=== PATIENT | female | born 2000 | race Caucasian/White ===

== ENCOUNTER 2019-03-01 17:15 | Emergency (ER) | payer OTHER ==
--- NOTE | 2019-03-01 17:25 | PDOC ---
Rapid Medical Evaluation Time Seen by Provider: 03/01/19 17:23 Medical Evaluation: 03/01/19 17:23 I have performed a brief in-person evaluation of this patient. The patient presents with a chief complaint of:+ home preg test 3 days ago, ~9- 10 weeks by dates, here w/ lower abd cramping x several weeks. No vag bleed, dysuria, n/v Pertinent physical exam findings:stable and well brenda I have ordered the following:labs/US The patient will proceed to the ED for further evaluation. Discharge Disposition - Diagnosis Abdominal cramping - Referrals - Patient Instructions - Post Discharge Activity
[2019-03-01 17:27] VITALS: BP 121/75; PULSE 76; TEMP 98.8; BMI 22.6
--- NOTE | 2019-03-01 18:35 | PDOC ---
History of Present Illness - General Chief Complaint: Pain Stated Complaint: BAD CRAMPS Time Seen by Provider: 03/01/19 17:23 History Source: Patient Exam Limitations: No Limitations - History of Present Illness Initial Comments: 03/01/19 18:31 18 yo F with no medical history presents to the emergency department with abdominal cramps with associative nausea but no vomiting for 4 days. Per the patient, she took a test at home 3x a few days ago to confirm the . Her LMP is unknown, but she believes it to be in mid December and they are irregular. She denies vaginal bleeding but states she had white vaginal discharge. Her abdominal pain is located in the RLQ and LLQ (worse on right) that is cramping in nature and 10/10. Denies diarrhea and hematochezia. Allergies: PCN Social: Denies tobacco, alcohol, and substance abuse. Past History - Past Medical History Allergies/Adverse Reactions: Allergies Allergy/AdvReac Type Severity Reaction Status Date / Time Penicillins Allergy Verified 03/01/19 17:23 Home Medications: Ambulatory Orders NK [No Known Home Medication] 03/01/19 CVA: No COPD: No CHF: No DVT: No - Immunization History Immunization Up to Date: Yes - Suicide/Smoking/Psychosocial Hx Smoking History: Never smoked Hx Alcohol Use: No Drug/Substance Use Hx: No Review of Systems - Review of Systems Able to Perform ROS?: Yes Is the patient limited Indian proficient: No Constitutional: No: Chills, Diaphoresis, Fever, Weakness HEENTM: No: Recent change in vision, Ear Pain, Nose Pain, Throat Pain, Mouth Pain Respiratory: No: Cough, Shortness of Breath Cardiac (ROS): No: Chest Pain, Palpitations, Syncope ABD/GI: Yes: Nausea, Poor Appetite, Poor Fluid Intake. No: Constipated, Diarrhea, Rectal Bleeding, Vomiting, Tarry Stools : No: Burning, Dysuria, Discharge Musculoskeletal: No: Back Pain, Joint Pain, Neck Pain Integumentary: No: Bruising, Erythema, Rash Neurological: No: Headache, Numbness, Tingling, Tremors Psychiatric: No: Change in Appetite Endocrine: No: Unexplained Weight Gain Hematologic/Lymphatic: No: Anemia *Physical Exam - Vital Signs Last Vital Signs Temp Pulse Resp BP Pulse Ox 98.8 F 76 17 121/75 100 03/01/19 17:24 03/01/19 17:24 03/01/19 17:24 03/01/19 17:24 03/01/19 17:24 - Physical Exam General Appearance: Yes: Nourished, Appropriately Dressed. No: Apparent Distress HEENT: positive: EOMI, ELIESER, Normal Voice, Symmetrical, TMs Normal, Pharynx Normal, Hearing Grossly Normal. negative: Pale Conjunctivae, Scleral Icterus (R ), Scleral Icterus (L), Muffled/Hoarse voice, Pharyngeal Erythema, Tonsillar Exudate, Tonsillar Erythema, Rhinorrhea, Sinus Tenderness, Excessive drooling Neck: positive: Trachea midline, Supple. negative: Tender, Lymphadenopathy (R) , Lymphadenopathy (L) Respiratory/Chest: positive: Lungs Clear, Normal Breath Sounds. negative: Chest Tender, Respiratory Distress, Accessory Muscle Use, Rales, Rhonchi, Stridor, Wheezing Cardiovascular: positive: Regular Rhythm, Regular Rate, S1, S2. negative: Systolic Murmur Female Pelvic Exam: positive: normal external exam, cervical os closed, normal adnexa, other. negative: CMT, adnexal tenderness, vaginal bleeding (white discharge in vaginal vault) Gastrointestinal/Abdominal: positive: Normal Bowel Sounds, Tender (RLQ tenderness. ), Flat, Soft. negative: Distended, Rebound ED Treatment Course - LABORATORY CBC & Chemistry Diagram: 03/01/19 19:14 03/01/19 19:00 Medical Decision Making - Medical Decision Making 18 yo F with no medical history presents to the emergency department with abdominal cramps with associative nausea but no vomiting for 4 days Initial vitals; Initial Vital Signs Temp Pulse Resp BP Pulse Ox 98.8 F 76 17 121/75 100 03/01/19 17:24 03/01/19 17:24 03/01/19 17:24 03/01/19 17:24 03/01/19 17:24 Work up: ddx: r/o ectopic. assess for iup. in addition, concerns exist for possible appendicitis vs ovarian cyst. bedside POCUS shows no IUP, no free fluid, and unable to visualize appendix. but no wall edema found in the small bowel. Laboratory Tests 03/01/19 03/01/19 03/01/19 19:00 19:00 19:14 WBC 9.4 RBC 4.13 Hgb 12.7 Hct 37.9 MCV 91.6 MCH 30.8 MCHC 33.6 RDW 13.6 Plt Count 270 MPV 7.9 Absolute Neuts (auto) 6.6 Neutrophils % 70.6 Lymphocytes % 23.3 Monocytes % 5.6 Eosinophils % 0.4 Basophils % 0.1 Nucleated RBC % 0 Sodium 140 Potassium 3.7 Chloride 105 Carbon Dioxide 27 Anion Gap 9 BUN 15 Creatinine 0.5 L Creat Clearance w eGFR 158.94 Random Glucose 92 Calcium 9.4 Total Bilirubin 0.4 AST 8 L ALT 15 Alkaline Phosphatase 55 Total Protein 7.3 Albumin 4.2 Beta HCG, Quant 2200.9 Urine Color Urine Appearance Urine pH Ur Specific [place] Urine Protein Urine Glucose (UA) Urine Ketones Urine Blood Urine Nitrite Urine Bilirubin Urine Urobilinogen Ur Leukocyte Esterase Urine HCG, Qual Blood Type Antibody Screen 03/01/19 03/01/19 03/01/19 19:14 19:17 19:20 WBC RBC Hgb Hct MCV MCH MCHC RDW Plt Count MPV Absolute Neuts (auto) Neutrophils % Lymphocytes % Monocytes % Eosinophils % Basophils % Nucleated RBC % Sodium Potassium Chloride Carbon Dioxide Anion Gap BUN Creatinine Creat Clearance w eGFR Random Glucose Calcium Total Bilirubin AST ALT Alkaline Phosphatase Total Protein Albumin Beta HCG, Quant Urine Color Yellow Urine Appearance Clear Urine pH 5.5 Ur Specific [place] 1.040 H Urine Protein Negative Urine Glucose (UA) Negative Urine Ketones 3+ H Urine Blood Negative Urine Nitrite Negative Urine Bilirubin Negative Urine Urobilinogen 1.0 Ur Leukocyte Esterase Negative Urine HCG, Qual Positive Blood Type O POSITIVE Antibody Screen Negative UA shows 3+ ketones. patient's TVUS shows gestational sac that could be a true gestational sac at 5 weeks 3 days. No pole or yolk sac identified. the patient's bhcg is consistent with the gestational age range. patient has no elevation of WBC and resolution of abdominal pain with tylenol, reglan, and IVF. patient was given strict return precautions and given a report of the ultrasound. she was given a referral to OBGYN for follow up care and management. Dispo: Discharge. *DC/Admit/Observation/Transfer Diagnosis at time of Disposition: Abdominal cramping - Discharge Dispostion Disposition: HOME Decision to Admit order: No - Referrals Referrals: ON STAFF,NOT [Primary Care Provider] - Rosa M Toussaint MD [Staff Physician] - [facility] [place] [facility] [place] [Provider Group] - Patient Instructions Printed Discharge Instructions: Eating for Appropriate Weight Gain During , Common Discomforts and Bodily Changes During , Exercise and : A Healthy Combination, Herbs and Supplements to Avoid During and (Alternat, Diet Additional Instructions: you were seen for the evaluation of your abdominal cramping. your labs were within normal limits except your urine showing that you were dehydrated. your ultrasound showed what appears to be a gestational sac with no free fluid estimated at 5 weeks 3 days with bhcg at 2200. please follow up with your OBGYN doctor or the one referred to you in 1 week after discharge. please return to the emergency department if you have worsening pain or new concerning symptoms such as fevers, chills, chest pain, shortness of breath, migrating abdominal pain, pain with urination and blood in the urine. thank you. - Post Discharge Activity Forms/Work/School Notes: Back to Work
[2019-03-01] MEDS ORDERED: METOCLOPRAMIDE HCL INJECTION 10 MG/2 ML VIAL IVPUSH ONE (18:43)
[2019-03-01] MEDS ORDERED: SODIUM CHLORIDE 1,000 ML IV STA (18:43)
[2019-03-01] MEDS ORDERED: ACETAMINOPHEN 1000 MG/100 ML VIAL (NON FORMULARY) IVPB ONE (18:43)
--- NOTE | 2019-03-01 19:12 | PDOC ---
Attending Attestation - Resident Resident Name: Trent Boyle - ED Attending Attestation I have performed the following: I have examined & evaluated the patient, The case was reviewed & discussed with the resident, I agree w/resident's findings & plan - HPI HPI: 03/02/19 11:14 18 yo F with no medical history presents to the emergency department with lower abdominal cramps with associative nausea x 4 days. Per the patient, she took a test at home 3x a few days ago to confirm the . Her LMP is unknown, but she believes it to be in mid December and they are irregular. She denies vaginal bleeding but states she had white vaginal discharge. Her abdominal pain is located in the RLQ and LLQ (worse on right) that is cramping in nature and 10/10. - Physicial Exam PE: 03/02/19 11:14 NAD, well appearing. neck supple. nl conjunctiva. MMM. RRR, CTAB, Abdomen soft, min tender, right>left, no rebound or guarding. no CVAT WWP, no edema. JEAN-BAPTISTE x4 - Medical Decision Making 03/01/19 19:11 DDx female VB: ectopic , miscarriage, demise, subchorionic hematoma, retained POC, normal first trimester bleeding, UTI in in . Fibroid uterus, vaginitis, infection, electrolyte/metabolic derangements, anemia. attempted limited bedside pelvic US, unable to visualize GS/FP/YS. no pelvic FF , unable to visualize appx. will get official TVUS and appx. reassess abdomen exam, otherwise benign and nonperitoneal. VS wnl, abdomen nonperitoneal, no VB Rh status, CBC/chem, Beta hcg, TVUS and pelvic sono. s/o to Dr Cartagena at 7pm pending imaging, labs and ultimate dispo 03/02/19 11:15 03/02/19 11:15
[2019-03-01] MEDS ORDERED: METOCLOPRAMIDE HCL INJECTION 10 MG/2 ML VIAL ONE (19:33)
[2019-03-01] MEDS ORDERED: ACETAMINOPHEN INJECTION 100 ML IVPB ONE (19:33)
--- NOTE | 2019-03-01 19:34 | PDOC ---
*Physical Exam - Vital Signs Last Vital Signs Temp Pulse Resp BP Pulse Ox 98.8 F 76 17 121/75 100 03/01/19 17:24 03/01/19 17:24 03/01/19 17:24 03/01/19 17:24 03/01/19 17:24 ED Treatment Course - LABORATORY CBC & Chemistry Diagram: 03/01/19 19:14 03/01/19 19:00 Medical Decision Making - Medical Decision Making 03/01/19 19:33 Patient signed out to me pending ultrasound results and reevaluation 03/01/19 21:41 Ultrasound and labs reviewed, patient advised to follow-up in 48 hours for repeat quantitative levels and to return immediately should she develop fever, excessive vomiting or worsening pain On reevaluation she has no abdominal tenderness and states she's feeling much better She was given IV fluid 2 L in the emergency department Plan for discharge home with prompt outpatient *DC/Admit/Observation/Transfer Diagnosis at time of Disposition: Abdominal cramping - Discharge Dispostion Disposition: HOME - Referrals Referrals: [facility] [place] [facility] at [place] [Provider Group] Rosa M Toussaint MD [Staff Physician] - ON STAFF,NOT [Primary Care Provider] - - Patient Instructions Printed Discharge Instructions: Eating for Appropriate Weight Gain During , Common Discomforts and Bodily Changes During , Exercise and : A Healthy Combination, Herbs and Supplements to Avoid During and (Alternat, Diet Additional Instructions: you were seen for the evaluation of your abdominal cramping. your labs were within normal limits except your urine showing that you were dehydrated. your ultrasound showed what appears to be a gestational sac with no free fluid estimated at 5 weeks 3 days with bhcg at 2200. please follow up with your OBGYN doctor or the one referred to you in 1 week after discharge. please return to the emergency department if you have worsening pain or new concerning symptoms such as fevers, chills, chest pain, shortness of breath, migrating abdominal pain, pain with urination and blood in the urine. thank you. - Post Discharge Activity Forms/Work/School Notes: Back to Work
[2019-03-01 19:49] LABS: BASO % 0.1 % (0-2.0); EOS % 0.4 % (0-4.5); HEMATOCRIT 37.9 % (32.4-45.2); HEMOGLOBIN 12.7 GM/dL (10.7-15.3); LYMPH % 23.3 % (8-40); MCH 30.8 pg (25.7-33.7); MCHC 33.6 g/dl (32.0-36.0); MEAN CELL VOLUME 91.6 fl (80-96); MEAN PLT VOLUME 7.9 fl (7.5-11.1); MONO % 5.6 % (3.8-10.2); NEUT % 70.6 % (42.8-82.8); PLATELET COUNT 270 K/MM3 (134-434); RBC 4.13 M/mm3 (3.60-5.2); RDW 13.6 % (11.6-15.6); WHITE BLOOD COUNT 9.4 K/mm3 (4.0-10.0)
[2019-03-01 19:53] LABS: PH,URINE 5.5 (5.0-8.0); URINE APPEARANCE CLEAR; URINE BILIRUBIN NEGATIVE (NEGATIVE); URINE COLOR YELLOW; URINE GLUCOSE (UA) NEGATIVE (NEGATIVE); URINE KETONE 3+ (NEGATIVE); URINE LEUK ESTERASE NEGATIVE (NEGATIVE); URINE NITRITE NEGATIVE (NEGATIVE); URINE PROTEIN NEGATIVE (NEGATIVE)
[2019-03-01 20:17] LABS: ALBUMIN 4.2 g/dl (3.4-5.0); ALK PHOS 55 U/L (45-117); ANION GAP 9 MMOL/L (8-16); BILIRUBIN,TOTAL 0.4 mg/dL (0.2-1); BLOOD UREA NITROGEN 15 mg/dL (7-18); CALCIUM 9.4 mg/dL (8.5-10.1); CHLORIDE 105 mmol/L (98-107); CO2 27 mmol/L (21-32); CREATININE 0.5 mg/dL (0.55-1.3); GLUCOSE,RANDOM 92 mg/dL (74-106); POTASSIUM 3.7 mmol/L (3.5-5.1); SGOT/AST 8 U/L (15-37); SGPT/ALT 15 U/L (13-61); SODIUM 140 mmol/L (136-145); TOT PROT 7.3 g/dl (6.4-8.2)
== END 2019-03-01 21:51 | disposition home or self-care (01) ==
LOC: JER 17:15
PROC: 3E0337Z Introduction of Electrolytic and Water Balance Substance into Peripheral Vein, Percutaneous Approach (ICD-10-PCS; principal; 2019-03-01)
PROC: 3E033GC Introduction of Other Therapeutic Substance into Peripheral Vein, Percutaneous Approach (ICD-10-PCS; 2019-03-01)
DX: O26.891 Other specified pregnancy related conditions, first trimester (principal); E86.0 Dehydration; R10.30 Lower abdominal pain, unspecified; Z3A.01 Less than 8 weeks gestation of pregnancy
CPT/HCPCS: 36415; 76817-TC; 76856-TC; 80053; 81003; 84702; 84703; 85025; 86850; 86900; 86901; 87086; 87491; 87591; 87661; 99283-25; J0131; J7030